=== PATIENT | male | born 1995 | race Caucasian/White ===

== ENCOUNTER 2017-10-12 22:12 | Emergency (ER) | payer BC ==
[~2017-10-12] VITALS: Ht 172.7 cm; Wt 74.1 kg
[2017-10-12 22:18] VITALS: TEMP 36.9; Ht 172.7 cm; Wt 74.1 kg
--- NOTE | 2017-10-13 00:09 | EMERGENCY ROOM VISIT NOTE ---
History First contact with patient: 22:24 Chief Complaint: SHOULDER PAIN Stated Complaint: DISLOCATED SHOULDER History of Present Illness The patient is a 22 year old male who presents to the Emergency Room with complaints of a right shoulder injury. The patient states that he was snowboarding and fell onto the back of his right shoulder. He rates his discomfort a 7/10 and has been unable to move his arm at the shoulder. He denies hitting his head or any other injuries. He denies any numbness or weakness. He denies history of shoulder injuries or dislocations. Review of Systems A complete 10 point review of systems was reviewed with the patient with pertinent positives and negatives as per history of present illness. All else were negative. Past Medical/Surgical History Medical Problems: (1) No significant past medical history Surgical Problems: (1) No significant past surgical history Social History Smoking Status: Never Smoker Occupation Status: employed Current/Historical Medications No Active Prescriptions or Reported Meds Physical Exam Vital Signs Date Time Temp Pulse Resp B/P (MAP) Pulse Ox O2 Delivery O2 Flow Rate FiO2 10/13/17 00:14 68 16 132/68 99 10/12/17 22:18 36.9 80 16 152/81 99 Room Air Physical Exam VITALS: Vitals are noted on the nurse's note and reviewed by myself. Vital signs stable. GENERAL: This is a 22-year-old male, in no acute distress, nondiaphoretic, well- developed well-nourished. HEART: Regular rate and rhythm without murmurs gallops or rubs. LUNGS: Clear to auscultation bilaterally without wheezes, rales or rhonchi. MUSCULOSKELETAL: There is concave deformity of the right shoulder with tenderness to palpation over the lateral aspect of the right shoulder. No tenderness of the distal clavicle, elbow or forearm. NEURO: Patient was alert and oriented to person place and time. Normal sensation to light and sharp touch. Medical Decision & Procedures ER Provider Diagnostic Interpretation: RIGHT SHOULDER: Anterior dislocation of the right shoulder. RIGHT SHOULDER POST-REDUCTION: Anatomical alignment of the right shoulder. ED Course The patient was evaluated as above. Shoulder x-ray was performed and read by radiology as above. Shoulder was successfully reduced by lying the patient prone in the bed and applying downward traction to the humerus. Postreduction films were performed and read by radiology. Patient was placed in an arm sling. Discharge instructions were reviewed with the patient. The patient verbalized understanding of my assessment and treatment plan and was discharged home in good condition. Medical Decision Differential diagnosis includes shoulder dislocation, fracture, sprain, contusion, among others. The patient is a 22-year-old male who presents today complaining of right shoulder injury. X-ray shows anterior dislocation of the right shoulder. This was easily reduced by placing the patient in the prone position and applying gentle downward traction to the humerus. Postreduction films were performed and were within normal limits. He was placed in an arm sling and conservative measures were discussed. He will follow-up with orthopedics. He verbalized understanding of my assessment and treatment plan and was discharged home in good condition. Medication Reconcilliation Current Medication List: was personally reviewed by me Blood Pressure Screening Patient's blood pressure: Normal blood pressure Impression Primary Impression: Shoulder dislocation Departure Information Dispostion Home / Self-Care Condition GOOD Prescriptions No Active Prescriptions or Reported Meds Referrals [facility] (PCP) Shon Moreno M.D. Patient Instructions My [facility] Additional Instructions You have been treated in the Emergency Department for Shoulder Pain. For pain control, you can use the following [id number] medicines (if >12 yo): - Regular strength (325mg/tab) Tylenol (acetaminophen) 2 tabs every 4-6 hours as needed. Do not exceed 12 tablets in a 24 hour period. Avoid taking more than 4 grams (4000 mg) of Tylenol per day. This includes any other sources of acetaminophen you may take on a regular basis. - Regular strength (200 mg/tab) Advil (ibuprofen) 1-2 tabs every 4-6 hours as needed. Do not exceed a dose of 3200 mg per day. If this is a recent injury (<24 hrs), ice can be applied to the area of pain for the first 3 days to help decrease pain and inflammation. You have been provided the number for an Orthopaedic Surgeon. You should call this number as soon as possible to establish a follow-up visit from today's Emergency Department visit. Wear the sling for the next 3-4 days, removing your arm from the sling to perform some range of motion exercises a few times per day. Return to the Emergency Department if your current symptoms worsen despite treatment course outlined above, or if you develop any of the following symptoms : intractable pain despite aforementioned treatment course or new onset of numbness or tingling of the arm. Problem Qualifiers Primary Impression: Shoulder dislocation Encounter type: initial encounter Laterality: right Qualified Codes: S43.004A - Unspecified dislocation of right shoulder joint, initial encounter
[2017-10-13 00:14] VITALS: BP 132/68; PULSE 68; O2SAT 99
--- NOTE | 2017-10-13 06:41 | DIAGNOSTIC IMAGING REPORT ---
R SHOULDER MIN 2 VIEWS ROUTINE CLINICAL HISTORY: Right shoulder pain status post trauma COMPARISON: None. DISCUSSION: There is anterior dislocation. The fractures are visualized on the provided 2 images. IMPRESSION: Anterior dislocation of the right shoulder Electronically signed by: Nabor Correa M.D. 10/13/2017 6:39 AM Dictated Date/Time: 10/13/2017 6:39 AM
--- NOTE | 2017-10-13 07:12 | DIAGNOSTIC IMAGING REPORT ---
RIGHT SHOULDER 2 VIEWS CLINICAL HISTORY: Postreduction examination. FINDINGS: 2 views of the right shoulder are compared to study performed earlier the same day 10/12/2017. The skeletal structures are well mineralized. No fracture is identified. There has been successful reduction of the dislocated right shoulder with baptism of near-anatomic alignment. The acromioclavicular joint is preserved. The overlying soft tissues are within normal limits. Imaged right lung parenchyma appears clear. IMPRESSION: 1. There has been successful reduction of the dislocated right shoulder. 2. No fracture is identified.. Electronically signed by: Galen Sarabia M.D. 10/13/2017 7:11 AM Dictated Date/Time: 10/13/2017 7:10 AM
== END 2017-10-13 00:15 | disposition home or self-care (01) ==
LOC: C.EDB 22:15 → C.EDC 10-13 00:15
DX: S43.004A Unspecified dislocation of right shoulder joint, initial encounter (principal); W19.XXXA Unspecified fall, initial encounter